=== PATIENT | female | born 1980 | race Two or more races ===

== ENCOUNTER → 2023-02-06 | Outpatient (CLI) | payer OTHER | END | disposition home or self-care (01) | LOC: RAD 14:14 | PROVIDERS: ATTEND Orthopaedic Surgery | DX: S92.351A Displaced fracture of fifth metatarsal bone, right foot, initial encounter for closed fracture (principal) ==

== ENCOUNTER 2023-02-13 09:13 | Outpatient (CLI) | payer OTHER | END 2023-02-13 09:14 | disposition home or self-care (01) | LOC: RAD 09:13 | PROVIDERS: ATTEND Orthopaedic Surgery | DX: S92.351A Displaced fracture of fifth metatarsal bone, right foot, initial encounter for closed fracture (principal); S92.054A Nondisplaced other extraarticular fracture of right calcaneus, initial encounter for closed fracture; S92.214A Nondisplaced fracture of cuboid bone of right foot, initial encounter for closed fracture ==

== ENCOUNTER 2023-03-06 14:24 | Outpatient (CLI) | payer OTHER | END 2023-03-06 14:36 | disposition home or self-care (01) | LOC: RAD 14:24 | PROVIDERS: ATTEND Orthopaedic Surgery | DX: S92.351D Displaced fracture of fifth metatarsal bone, right foot, subsequent encounter for fracture with routine healing (principal); S92.054 Nondisplaced other extraarticular fracture of right calcaneus; S92.214D Nondisplaced fracture of cuboid bone of right foot, subsequent encounter for fracture with routine healing ==

== ENCOUNTER 2023-04-17 14:27 | Outpatient (CLI) | payer OTHER | END 2023-04-17 14:42 | disposition home or self-care (01) | LOC: RAD 14:27 | PROVIDERS: ATTEND Orthopaedic Surgery | DX: S92.351D Displaced fracture of fifth metatarsal bone, right foot, subsequent encounter for fracture with routine healing (principal); S92.054 Nondisplaced other extraarticular fracture of right calcaneus; S92.214D Nondisplaced fracture of cuboid bone of right foot, subsequent encounter for fracture with routine healing ==

== ENCOUNTER 2023-07-09 09:49 | Outpatient (CLI) | payer OTHER | END 2023-07-09 09:50 | disposition home or self-care (01) | LOC: LAB 09:49 | PROVIDERS: ATTEND Orthopaedic Surgery | DX: E55.9 Vitamin D deficiency, unspecified (principal); M85.9 Disorder of bone density and structure, unspecified; E56.1 Deficiency of vitamin K; Z88.0 Allergy status to penicillin ==

== ENCOUNTER 2023-07-09 13:03 | Outpatient (CLI) | payer OTHER | END 2023-07-09 13:05 | disposition home or self-care (01) | LOC: NUCLEAR 13:03 | PROVIDERS: ATTEND Orthopaedic Surgery | DX: M81.0 Age-related osteoporosis without current pathological fracture (principal) ==

== ENCOUNTER 2023-08-07 14:57 | Outpatient (CLI) | payer OTHER | END 2023-08-07 15:06 | disposition home or self-care (01) | LOC: RAD 14:57 | PROVIDERS: ATTEND Orthopaedic Surgery | DX: S92.054 Nondisplaced other extraarticular fracture of right calcaneus (principal); S92.214D Nondisplaced fracture of cuboid bone of right foot, subsequent encounter for fracture with routine healing; Z88.0 Allergy status to penicillin ==